=== PATIENT | female | born 1950 | race Caucasian/White ===

== ENCOUNTER 2017-01-06 08:12 | Inpatient (IN) | payer OTHER, MEDICARE ==
[~2017-01-06] VITALS: Ht 160 cm; Wt 71.5 kg
[2017-01-06] MEDS ORDERED: ZOLP-413 PO (08:24)
[2017-01-06] MEDS ORDERED: SODIUM CHLORIDE 0.9% 1,000 ML IV ONE ×2 (08:50→14:19)
[2017-01-06] MEDS ORDERED: SODIUM CHLORIDE 0.9% 1,000ML IVBOLUS ONE (09:00)
[2017-01-06] MEDS ORDERED: SODIUM CHLORIDE FLUSH 10ML SYR IVF ONE (09:00)
[2017-01-06 09:43] LABS: BLOOD UREA NITROGEN 8 mg/dL (7-18)
[2017-01-06 09:45] LABS: IS PT STATUS REG ER OR PRE ER? YES
[2017-01-06 09:51] LABS: ASPARTATE AMINO TRANSFERASE 68 U/L (15-37)
[2017-01-06] MEDS ORDERED: SODIUM CHLORIDE FLUSH 10ML SYR IVF PRN (14:30)
[2017-01-06] MEDS: METRONIDAZOLE PMX 500MG/100ML 100 ML IV SCH ×2 (16:51→23:46)
[2017-01-06] MEDS: LACTULOSE 20 GM/30 ML UDC PO SCH ×2 (16:51→20:55)
[2017-01-06 18:59] VITALS: BP 107/77
[2017-01-06] MEDS: RIFAXIMIN 550 MG TABLET PO SCH (20:27)
[2017-01-06] MEDS: CEFTRIAXONE PMX 1GM/50ML 50 ML IV SCH (20:27)
[2017-01-07] VITALS (15 sets, daily range): BP systolic 74–129; BP diastolic 49–80
[2017-01-07] MEDS: ONDANSETRON 2MG/ML, 2ML IVPush PRN (00:12)
[2017-01-07 05:16] LABS: BLOOD UREA NITROGEN 6 mg/dL (7-18)
[2017-01-07 05:26] LABS: ASPARTATE AMINO TRANSFERASE 55 U/L (15-37); TOTAL IRON BINDING CAPACITY 183 mcg/dL (250-450)
[2017-01-07] MEDS ORDERED: MAGNESIUM SULFATE 6 GM in SODIUM CHLORIDE 0.9% 100 ML IV ONE (08:00)
[2017-01-07] MEDS ORDERED: POTASSIUM CHLORIDE 20 MEQ TAB.ER.PRT PO ONE (08:00)
[2017-01-07] MEDS ORDERED: POTASSIUM PHOSPHATE 22 MEQ in SODIUM CHLORIDE 0.9% 500 ML IV ONE (08:00)
[2017-01-07] MEDS: LACTULOSE 20 GM/30 ML UDC PO SCH ×3 (09:00→20:56)
[2017-01-07] MEDS: RIFAXIMIN 550 MG TABLET PO SCH ×2 (09:00→20:56)
[2017-01-07] MEDS: METRONIDAZOLE PMX 500MG/100ML 100 ML IV SCH ×2 (11:22→17:08)
[2017-01-07] MEDS ORDERED: SINCALIDE (KINEVAC) 5 MCG ONE (14:30)
[2017-01-07] MEDS: PANTOPROZOLE 40MG TABLET PO SCH (17:08)
[2017-01-07] MEDS ORDERED: PNEUMOCOCCAL 23 VACCINE IM-VACC ONE (18:30)
[2017-01-07] MEDS: ZINC SULFATE 220 MG CAPSULE PO SCH (20:57)
[2017-01-07] MEDS: CEFTRIAXONE PMX 1GM/50ML 50 ML IV SCH (20:57)
[2017-01-08 01:17] VITALS: BP 95/63
[2017-01-08 01:32] LABS: OCCBLD OBC PASS
[2017-01-08] MEDS: METRONIDAZOLE PMX 500MG/100ML 100 ML IV SCH ×3 (02:32→17:30)
[2017-01-08 02:43] VITALS: BP 95/61
[2017-01-08 05:05] LABS: BLOOD UREA NITROGEN 5 mg/dL (7-18)
[2017-01-08 05:09] LABS: ASPARTATE AMINO TRANSFERASE 69 U/L (15-37)
[2017-01-08] MEDS: PANTOPROZOLE 40MG TABLET PO SCH (07:30)
[2017-01-08 07:53] VITALS: BP 91/58
[2017-01-08] MEDS: LACTULOSE 20 GM/30 ML UDC PO SCH ×3 (07:58→20:57)
[2017-01-08] MEDS: POTASSIUM CHLORIDE 20 MEQ TAB.ER.PRT PO SCH (07:58)
[2017-01-08] MEDS: ZINC SULFATE 220 MG CAPSULE PO SCH ×2 (07:59→20:57)
[2017-01-08] MEDS: RIFAXIMIN 550 MG TABLET PO SCH ×2 (07:59→20:57)
[2017-01-08 09:45] LABS: HEPATITIS C VIRUS ANTIBODY Nonreactive (Nonreactive)
[2017-01-08 12:57] LABS: ANA SCREEN POSITIVE (Negative)
[2017-01-08 13:05] VITALS: BP 92/62
[2017-01-08] MEDS ORDERED: BUPIVACAINE/PF-EPI 0.5% 1:200K ONE (14:40)
[2017-01-08] MEDS ORDERED: FENTANYL PF 250 MCG/5ML ONE (14:56)
[2017-01-08] MEDS ORDERED: MIDAZOLAM 1 MG/ML, 2ML ONE (14:56)
[2017-01-08] MEDS ORDERED: ALBUMIN HUMAN 5% 500 ML ONE (15:37)
[2017-01-08] MEDS ORDERED: MIDAZOLAM 1 MG/ML, 2ML IV PRN (16:00)
[2017-01-08] MEDS ORDERED: ONDANSETRON 2MG/ML, 2ML IVPush PRN (16:00)
[2017-01-08] MEDS ORDERED: HYDROmorphone 1 MG/ML, 1ML IV PRN (16:00)
[2017-01-08] MEDS ORDERED: OXYcodone 5 MG/5 ML ORAL.SOL UDC PO PRN (16:00)
[2017-01-08] MEDS ORDERED: FENTANYL PF 100 MCG/2ML ONE (16:46)
[2017-01-08] MEDS ORDERED: OXYcodone 5 MG/5 ML ORAL.SOL UDC ONE (16:47)
[2017-01-08] MEDS: FENTANYL PF 100 MCG/2ML IV PRN ×3 (16:50→17:23)
[2017-01-08] MEDS ORDERED: ONDANSETRON 2MG/ML, 2ML ONE (17:03)
[2017-01-08] MEDS ORDERED: SUCCINYLCHOLINE 20 MG/ML, 10ML ONE (17:03)
[2017-01-08] MEDS ORDERED: PROPOFOL 10 MG/ML, 20ML ONE (17:03)
[2017-01-08] MEDS ORDERED: DEXAMETHASONE 4 MG/ML, 1ML ONE (17:03)
[2017-01-08 20:41] VITALS: BP 100/64
[2017-01-08] MEDS: CEFTRIAXONE PMX 1GM/50ML 50 ML IV SCH (20:57)
[2017-01-09 01:04] VITALS: BP 100/60
[2017-01-09] MEDS: METRONIDAZOLE PMX 500MG/100ML 100 ML IV SCH ×3 (01:24→18:32)
[2017-01-09 05:16] LABS: ASPARTATE AMINO TRANSFERASE 79 U/L (15-37)
[2017-01-09 05:18] LABS: BLOOD UREA NITROGEN 5 mg/dL (7-18)
[2017-01-09 05:45] LABS: DIFF TOTAL CELLS COUNTED 100 CELL DIFF
[2017-01-09 05:46] LABS: VERIFY COUNTS? YES
[2017-01-09 05:47] LABS: ANISOCYTOSIS 1+; POLYCHROMASIA 1+
[2017-01-09 06:39] VITALS: BP 100/71
[2017-01-09] MEDS: PANTOPROZOLE 40MG TABLET PO SCH (07:30)
[2017-01-09] MEDS: POTASSIUM CHLORIDE 20 MEQ TAB.ER.PRT PO SCH (08:34)
[2017-01-09] MEDS: RIFAXIMIN 550 MG TABLET PO SCH ×2 (08:34→21:09)
[2017-01-09] MEDS: LACTULOSE 20 GM/30 ML UDC PO SCH ×3 (08:34→21:08)
[2017-01-09] MEDS: ZINC SULFATE 220 MG CAPSULE PO SCH ×2 (08:34→21:09)
[2017-01-09 12:36] VITALS: BP 92/69
[2017-01-09] MEDS: OXYcodone IR 5MG TABLET PO PRN (15:09)
[2017-01-09 19:03] VITALS: BP 116/90
[2017-01-09] MEDS: CEFTRIAXONE PMX 1GM/50ML 50 ML IV SCH (21:08)
[2017-01-10] MEDS: METRONIDAZOLE PMX 500MG/100ML 100 ML IV SCH ×3 (02:21→17:30)
[2017-01-10 02:25] VITALS: BP 121/87
[2017-01-10 05:30] LABS: ASPARTATE AMINO TRANSFERASE 78 U/L (15-37); BLOOD UREA NITROGEN 10 mg/dL (7-18)
[2017-01-10 06:17] LABS: DIFF TOTAL CELLS COUNTED 100 CELL DIFF
[2017-01-10 06:19] LABS: ANISOCYTOSIS 1+; POLYCHROMASIA 1+; VERIFY COUNTS? YES
[2017-01-10 06:20] LABS: TARGET CELLS 1+
[2017-01-10 08:00] VITALS: BP 91/61
[2017-01-10] MEDS: POTASSIUM CHLORIDE 20 MEQ TAB.ER.PRT PO SCH (08:19)
[2017-01-10] MEDS: ZINC SULFATE 220 MG CAPSULE PO SCH ×2 (08:19→22:29)
[2017-01-10] MEDS: RIFAXIMIN 550 MG TABLET PO SCH ×2 (08:19→22:29)
[2017-01-10] MEDS: PANTOPROZOLE 40MG TABLET PO SCH (08:19)
[2017-01-10] MEDS: LACTULOSE 20 GM/30 ML UDC PO SCH ×3 (08:20→21:00)
[2017-01-10] MEDS: ONDANSETRON 2MG/ML, 2ML IVPush PRN (12:17)
[2017-01-10] MEDS: OXYcodone IR 5MG TABLET PO PRN (12:17)
[2017-01-10 13:43] VITALS: BP 119/79
[2017-01-10] MEDS ORDERED: MORPHINE SULFATE 4 MG/ML, 1ML ONE (14:30)
[2017-01-10] MEDS: FUROSEMIDE 40 MG TABLET PO SCH (14:34)
[2017-01-10] MEDS: morphine SULFATE 10 MG/ML, 1ML IVPush PRN (14:34)
[2017-01-10 19:52] VITALS: BP 115/85
[2017-01-10] MEDS: SPIRONOLACTONE 50 MG TABLET PO SCH (22:29)
[2017-01-10] MEDS: CEFTRIAXONE 1,000 MG in SODIUM CHLORIDE 0.9% 50 ML IVPB SCH (22:29)
[2017-01-11 01:40] VITALS: BP 101/75
[2017-01-11] MEDS: METRONIDAZOLE PMX 500MG/100ML 100 ML IV SCH ×3 (01:49→23:49)
[2017-01-11] MEDS: OXYcodone IR 5MG TABLET PO PRN ×4 (02:51→23:49)
[2017-01-11 04:21] LABS: ASPARTATE AMINO TRANSFERASE 68 U/L (15-37); BLOOD UREA NITROGEN 17 mg/dL (7-18)
[2017-01-11] MEDS: PANTOPROZOLE 40MG TABLET PO SCH (08:00)
[2017-01-11] MEDS: POTASSIUM CHLORIDE 20 MEQ TAB.ER.PRT PO SCH (08:00)
[2017-01-11 08:08] VITALS: BP 126/89
[2017-01-11] MEDS ORDERED: ACETYLCYSTEINE 600 MG CAPSULE PO SCH ×2 (09:00→20:26)
[2017-01-11] MEDS: LACTULOSE 20 GM/30 ML UDC PO SCH ×3 (09:00→21:21)
[2017-01-11] MEDS: SPIRONOLACTONE 50 MG TABLET PO SCH ×2 (09:00→21:21)
[2017-01-11] MEDS: RIFAXIMIN 550 MG TABLET PO SCH ×2 (09:00→21:22)
[2017-01-11] MEDS: FUROSEMIDE 40 MG TABLET PO SCH (09:00)
[2017-01-11] MEDS: ZINC SULFATE 220 MG CAPSULE PO SCH ×2 (09:00→21:23)
[2017-01-11] MEDS ORDERED: FENTANYL PF 250 MCG/5ML ONE (10:14)
[2017-01-11] MEDS ORDERED: MIDAZOLAM 1 MG/ML, 2ML ONE (10:14)
[2017-01-11] MEDS ORDERED: PROTAMINE SULFATE 10 MG/ML, 5ML ONE ×2 (10:15→10:16)
[2017-01-11] MEDS ORDERED: HEPARIN 1,000 UNITS/ML, 30ML ONE (10:15)
[2017-01-11] MEDS ORDERED: THROMBIN 20,000 UNIT VIAL TP ONE (10:15)
[2017-01-11] MEDS ORDERED: BACITRACIN 50,000 UNIT ONE (10:15)
[2017-01-11] MEDS ORDERED: ONDANSETRON 2MG/ML, 2ML ONE (10:29)
[2017-01-11] MEDS ORDERED: SUCCINYLCHOLINE 20 MG/ML, 10ML ONE (10:29)
[2017-01-11] MEDS ORDERED: CEFAZOLIN 1,000 MG ONE (10:29)
[2017-01-11] MEDS ORDERED: PROPOFOL 10 MG/ML, 20ML ONE (10:29)
[2017-01-11] MEDS ORDERED: hydrALAzine 20 MG/ML, 1ML IV PRN (12:00)
[2017-01-11] MEDS ORDERED: FENTANYL PF 100 MCG/2ML IV PRN (12:00)
[2017-01-11] MEDS ORDERED: ONDANSETRON 2MG/ML, 2ML IVPush PRN (12:00)
[2017-01-11] MEDS ORDERED: HYDROmorphone 1 MG/ML, 1ML IV PRN (12:00)
[2017-01-11] MEDS ORDERED: OXYcodone 5 MG/5 ML ORAL.SOL UDC PO PRN (12:00)
[2017-01-11] MEDS ORDERED: ACETAMINOPHEN 325 MG TABLET PO PRN (12:00)
[2017-01-11] MEDS ORDERED: LABETALOL 5MG/ML, 20ML IV PRN (12:00)
[2017-01-11 13:32] VITALS: BP 103/80
[2017-01-11] MEDS: SODIUM CHLORIDE 0.9% 1,000 ML IV SCH (14:10)
[2017-01-11 20:00] VITALS: BP 135/80
[2017-01-11] MEDS: CEFTRIAXONE 1,000 MG in SODIUM CHLORIDE 0.9% 50 ML IVPB SCH (21:21)
[2017-01-11] MEDS: ONDANSETRON 2MG/ML, 2ML IVPush PRN (23:49)
[2017-01-12 02:38] VITALS: BP 114/84
[2017-01-12 03:26] LABS: PTH INTACT INTERPRETATION ** Comment **
[2017-01-12 03:51] LABS: PARATHYROID HORMONE INTACT 643.8 pg/mL (14-72)
[2017-01-12] MEDS: morphine SULFATE 10 MG/ML, 1ML IVPush PRN ×2 (06:03→14:28)
[2017-01-12] MEDS: METRONIDAZOLE PMX 500MG/100ML 100 ML IV SCH ×3 (06:10→23:01)
[2017-01-12] MEDS: SODIUM CHLORIDE 0.9% 1,000 ML IV SCH ×2 (06:10→23:00)
[2017-01-12] MEDS ORDERED: ERGOCALCIFEROL 50,000 UNIT CAPSULE PO SCH (07:00)
[2017-01-12 07:33] VITALS: BP 113/82
[2017-01-12] MEDS ORDERED: SODIUM BICARB 8.4%,50ML SYR. 75 MEQ in SODIUM CHLORIDE 0.45% 1,000 ML IV SCH (08:00)
[2017-01-12 08:10] LABS: ASPARTATE AMINO TRANSFERASE 276 U/L (15-37); BLOOD UREA NITROGEN 23 mg/dL (7-18)
[2017-01-12] MEDS ORDERED: HEPARIN 5,000 UNITS/ML, 1ML IV PRN (08:30)
[2017-01-12] MEDS ORDERED: HEPARIN 5,000 UNITS/ML, 1ML IV ONE (08:30)
[2017-01-12] MEDS: PANTOPROZOLE 40MG TABLET PO SCH (09:37)
[2017-01-12] MEDS: LACTULOSE 20 GM/30 ML UDC PO SCH ×3 (09:37→20:47)
[2017-01-12] MEDS: SODIUM BICARB 8.4%,50ML SYR. 75 MEQ in SODIUM CHLORIDE 0.45% 1,000 ML IV SCH ×2 (10:14→23:14)
[2017-01-12 10:41] LABS: PROTIME 17.8 Seconds (9.6-11.5)
[2017-01-12] MEDS: HEPARIN 25,000 UNITS/500ML PMX 500 ML IV PRN (11:14)
[2017-01-12] MEDS: RIFAXIMIN 550 MG TABLET PO SCH ×2 (11:15→23:01)
[2017-01-12] MEDS: ZINC SULFATE 220 MG CAPSULE PO SCH (11:15)
[2017-01-12] MEDS: ALBUMIN HUMAN 25% 100 ML IV SCH ×3 (14:05→20:50)
[2017-01-12 14:32] VITALS: BP 103/73
[2017-01-12 19:37] VITALS: BP 74/61
[2017-01-12 20:07] VITALS: BP 95/60
[2017-01-12] MEDS: ONDANSETRON 2MG/ML, 2ML IVPush PRN (20:46)
[2017-01-12] MEDS: CEFTRIAXONE 1,000 MG in SODIUM CHLORIDE 0.9% 50 ML IVPB SCH (20:46)
[2017-01-13] VITALS (13 sets, daily range): BP systolic 81–115; BP diastolic 48–66
[2017-01-13] MEDS ORDERED: SODIUM CHLORIDE 0.9% 1,000ML IVBOLUS ONE (02:00)
[2017-01-13 02:19] LABS: ASPARTATE AMINO TRANSFERASE 142 U/L (15-37); BLOOD UREA NITROGEN 24 mg/dL (7-18)
[2017-01-13] MEDS ORDERED: SODIUM CHLORIDE 0.9% 500 ML IV SCH (03:16)
[2017-01-13] MEDS: morphine SULFATE 10 MG/ML, 1ML IVPush PRN ×3 (03:31→17:49)
[2017-01-13] MEDS: ALBUMIN HUMAN 25% 100 ML IV SCH ×2 (03:32→10:25)
[2017-01-13] MEDS: PANTOPROZOLE 40MG TABLET PO SCH (09:09)
[2017-01-13] MEDS: METRONIDAZOLE PMX 500MG/100ML 100 ML IV SCH ×2 (09:09→17:40)
[2017-01-13] MEDS: RIFAXIMIN 550 MG TABLET PO SCH ×2 (09:09→21:07)
[2017-01-13] MEDS: LACTULOSE 20 GM/30 ML UDC PO SCH ×3 (10:04→21:07)
[2017-01-13] MEDS ORDERED: FUROSEMIDE 20 MG/2 ML ONE (10:21)
[2017-01-13] MEDS: FUROSEMIDE 40 MG/4 ML IV SCH ×2 (10:26→22:30)
[2017-01-13] MEDS: HEPARIN 25,000 UNITS/500ML PMX 500 ML IV PRN ×3 (11:51→18:37)
[2017-01-13] MEDS: OXYcodone IR 5MG TABLET PO PRN (12:20)
[2017-01-13] MEDS: CEFTRIAXONE 1,000 MG in SODIUM CHLORIDE 0.9% 100 ML IVPB SCH (17:01)
[2017-01-13] MEDS: ONDANSETRON 2MG/ML, 2ML IVPush PRN (20:45)
[2017-01-14] MEDS: METRONIDAZOLE PMX 500MG/100ML 100 ML IV SCH ×3 (01:41→17:16)
[2017-01-14 03:32] VITALS: BP 92/64
[2017-01-14 05:27] LABS: BLOOD UREA NITROGEN 24 mg/dL (7-18)
[2017-01-14 05:31] LABS: ASPARTATE AMINO TRANSFERASE 269 U/L (15-37)
[2017-01-14 06:12] LABS: DIFF TOTAL CELLS COUNTED 100 CELL DIFF
[2017-01-14 06:15] LABS: VERIFY COUNTS? YES
[2017-01-14 06:16] LABS: ANISOCYTOSIS 1+
[2017-01-14 06:24] LABS: LARGE PLATELETS 1+
[2017-01-14] MEDS: PANTOPROZOLE 40MG TABLET PO SCH (07:49)
[2017-01-14] MEDS ORDERED: SODIUM BICARB 8.4%,50ML SYR. 75 MEQ in SODIUM CHLORIDE 0.45% 1,000 ML IV SCH (08:03)
[2017-01-14] MEDS: LACTULOSE 20 GM/30 ML UDC PO SCH ×2 (09:01→16:20)
[2017-01-14] MEDS: RIFAXIMIN 550 MG TABLET PO SCH (09:02)
[2017-01-14 13:00] VITALS: BP 89/65
[2017-01-14] MEDS ORDERED: SCOPOLAMINE PATCH, 1.5MG PATCH.TD72 TD ONE (13:30)
[2017-01-14] MEDS: morphine SULFATE 10 MG/ML, 1ML IVPush PRN ×2 (15:00→18:13)
[2017-01-14] MEDS ORDERED: PANT20TA2 PO (15:33)
[2017-01-14] MEDS ORDERED: RIFA550T PO (15:35)
[2017-01-14] MEDS: CEFTRIAXONE 1,000 MG in SODIUM CHLORIDE 0.9% 100 ML IVPB SCH (17:20)
[2017-01-15 12:06] LABS: COMPLEMENT C3 47 mg/dL (82-167); COMPLEMENT C4 11 mg/dL (14-44); COMPLEMENT TOTAL (CH50) 27 U/mL (42-60)
[2017-01-15 14:12] LABS: PROTEINASE 3 (PR-3) AB <3.5 U/mL (0.0-3.5)
== END 2017-01-14 19:35 | disposition hospice, home (50) | DRG 417 ==
LOC: ED 13:41 → EDIP 14:19 → 3NE 16:12 → 4NOR 01-11 12:46
PROVIDERS: ADMIT Internal Medicine; ATTEND Internal Medicine
PROC: 0FB04ZX Excision of Liver, Percutaneous Endoscopic Approach, Diagnostic (ICD-10-PCS; 2017-01-08)
PROC: 0FT44ZZ Resection of Gallbladder, Percutaneous Endoscopic Approach (ICD-10-PCS; principal; 2017-01-08 15:30)
PROC: 04CL3ZZ Extirpation of Matter from Left Femoral Artery, Percutaneous Approach (ICD-10-PCS; 2017-01-11)
PROC: 02HV33Z Insertion of Infusion Device into Superior Vena Cava, Percutaneous Approach (ICD-10-PCS; 2017-01-12)
PROC: B548ZZA Ultrasonography of Superior Vena Cava, Guidance (ICD-10-PCS; 2017-01-12)
PROC: 30233N1 Transfusion of Nonautologous Red Blood Cells into Peripheral Vein, Percutaneous Approach (ICD-10-PCS; 2017-01-13)
DX: K70.31 Alcoholic cirrhosis of liver with ascites (principal); E43 Unspecified severe protein-calorie malnutrition; N17.0 Acute kidney failure with tubular necrosis; D68.4 Acquired coagulation factor deficiency; E87.1 Hypo-osmolality and hyponatremia; E87.2 Acidosis; K80.12 Calculus of gallbladder with acute and chronic cholecystitis without obstruction; N39.0 Urinary tract infection, site not specified; K92.2 Gastrointestinal hemorrhage, unspecified; K70.40 Alcoholic hepatic failure without coma; D50.0 Iron deficiency anemia secondary to blood loss (chronic); Z23 Encounter for immunization; D63.8 Anemia in other chronic diseases classified elsewhere; D69.6 Thrombocytopenia, unspecified; E83.39 Other disorders of phosphorus metabolism; E83.42 Hypomagnesemia; E87.6 Hypokalemia; F10.10 Alcohol abuse, uncomplicated; F12.90 Cannabis use, unspecified, uncomplicated; F17.200 Nicotine dependence, unspecified, uncomplicated; F19.94 Other psychoactive substance use, unspecified with psychoactive substance-induced mood disorder; I99.8 Other disorder of circulatory system; J44.9 Chronic obstructive pulmonary disease, unspecified; K21.9 Gastro-esophageal reflux disease without esophagitis; R97.0 Elevated carcinoembryonic antigen [CEA]; Y90.0 Blood alcohol level of less than 20 mg/100 ml; R68.81 Early satiety; K70.11 Alcoholic hepatitis with ascites; N14.1 Nephropathy induced by other drugs, medicaments and biological substances; T50.8X5A Adverse effect of diagnostic agents, initial encounter; Z66 Do not resuscitate; Z51.5 Encounter for palliative care; Z78.0 Asymptomatic menopausal state; Z91.19 Patient's noncompliance with other medical treatment and regimen; Z68.27 Body mass index [BMI] 27.0-27.9, adult
CPT/HCPCS: 36415; 36569; 70450; 71010; 74177; 76000; 76700; 76770; 76937; 77001; 78227; 80053; 80307; 81001; 82010; 82105; 82140; 82272; 82306; 82310; 82378; 82436; 82550; 82570; 83520; 83540; 83550; 83605; 83690; 83735; 83930; 83935; 83970; 84100; 84133; 84156; 84300; 84439; 84443; 84446; 84484; 84550; 85014; 85018; 85025; 85049; 85379; 85384; 85520; 85610; 85730; 86038; 86039; 86063; 86147; 86160; 86162; 86225; 86256; 86301; 86704; 86803; 86850; 86900; 86923; 87040; 87086; 87340; 88304; 88307; 88313; 90732; 93005; 93306; 93922; 93926; 96360; J0690; J0696; J1100; J1644; J1940; J2250; J2405; J2704; J2720; J3010; J3475; P9045; P9047; A9537; C1751; C9898; J0330; J2270; J2805; J7030; J7040; P9016